=== PATIENT | female | born 1940 | race Caucasian/White ===

== ENCOUNTER 2022-09-29 12:22 | Outpatient (CLI) | payer MEDICARE, OTHER | END 2022-09-29 23:59 | disposition home or self-care (01) | LOC: RAD 12:22 | PROVIDERS: ATTEND Nurse Practitioner Primary Care | DX: Z01.810 Encounter for preprocedural cardiovascular examination (principal) | CPT/HCPCS: 93005 ==

== ENCOUNTER 2024-11-21 13:52 | Emergency (ER) | payer MEDICARE, OTHER ==
[~2024-11-21] VITALS: Ht 162.6 cm; Wt 78.0 kg
[2024-11-21] MEDS ORDERED: PRED20TA PO (16:39)
[2024-11-21] MEDS ORDERED: DOCU-148 PO (16:39)
[2024-11-21] MEDS ORDERED: HYDR-3965 PO (16:39)
[2024-11-21] MEDS: dexamethasone sod phosphate 10mg/ml inj IM STA (16:50)
[2024-11-21 16:56] VITALS: BP 142/88; PULSE 86; RESP 16; TEMP 97.7; O2SAT 98
== END 2024-11-21 16:58 | disposition home or self-care (01) ==
LOC: ER 13:52
DX: M25.562 Pain in left knee (principal)
CPT/HCPCS: 96372; 99283; J1100